=== PATIENT | female | born 1995 | race Caucasian/White ===

== ENCOUNTER → 2020-08-24 16:53 | Outpatient (CLI) | payer OTHER, SELFPAY ==
[2020-08-24 18:04] LABS: Add Manual Diff / Slide Review NO; Basophils Absolute Auto 0 /uL (0-100); Basophils Percent Auto 0.5 % (0-2); Eosinophils Absolute Auto 100 /uL (0-450); Eosinophils Percent Auto 1.9 % (2-4); Hematocrit 39.6 % (36-46); Hemoglobin 13.6 g/dL (12.0-16.0); Lymphocytes Absolute Auto 2300 /uL (1100-4500); Lymphocytes Percent Auto 32.2 % (25-40); Mean Corpuscular HGB Conc 34.4 % (30-36); Mean Corpuscular Hemoglobin 31.9 PG (26-34); Mean Corpuscular Volume 92.9 fL (80-100); Monocytes Absolute Auto 500 /uL (0-900); Monocytes Percent Auto 7.6 % (3-14); Neutrophils Absolute Auto 4100 /uL (1500-7000); Neutrophils Percent Auto 57.8 % (50-75); Platelet Count 169 X10^3/uL (150-400); Red Blood Cell Count 4.26 X10^6/uL (4.0-5.2); Red Cell Distribution Width 11.7 % (11.6-14.8); White Blood Cell Count 7.1 X10^3/uL (4.5-11.0)
[2020-08-24 18:49] LABS: Appearance Urine UA CLEAR; Bilirubin Urine UA NEGATIVE (NEGATIVE); Color Urine UA YELLOW; Glucose Urine UA NEGATIVE (Negative); Ketones Urine UA NEGATIVE (NEGATIVE); Leukocyte Esterase Urine UA NEGATIVE (NEGATIVE); Nitrite Urine UA NEGATIVE (Negative); Occult Blood Urine UA NEGATIVE (Negative); Protein Urine UA NEGATIVE (Negative); Urobilinogen Urine UA 0.2 E.U./dL (0.2)
[2020-08-24 19:28] LABS: Hepatitis B Surface Antigen NEGATIVE s/c (NEGATIVE); Rubella Antibody IgG 21.3 IU/mL (>15)
[2020-08-24 20:02] LABS: HIV 1 & 2 Ab/Ag 4th Gen Combo NEGATIVE (NEGATIVE); Hep C Virus Ab w/Reflex Quant NEGATIVE s/c (NEGATIVE)
[2020-08-25 06:01] LABS: RPR Screen Non Reactive (Non Reactive)
[2020-08-25 12:56] LABS: Varicella IgG Antibody 317 index (Immune >165)
== END ==
PROVIDERS: PCP Registered Nurse; Referring Provider Obstetrics & Gynecology; Visit Provider Obstetrics & Gynecology
DX: Z34.01 Encounter for supervision of normal first pregnancy, first trimester (principal)
CPT/HCPCS: 36415; 80055; 81003; 86787; 86803; 86850; 86900; 86901; 87086; 87389

== ENCOUNTER → 2020-09-17 | Outpatient (CLI) | payer OTHER, SELFPAY | PROVIDERS: Referring Provider Obstetrics & Gynecology; Visit Provider Obstetrics & Gynecology | DX: Z36.0 Encounter for antenatal screening for chromosomal anomalies (principal) | CPT/HCPCS: 84163 ==

== ENCOUNTER → 2020-10-19 16:49 | Outpatient (CLI) | payer OTHER, SELFPAY ==
[2020-11-20 15:20] LABS: Sequential Screen 2nd Trimeste SEE SCANNED REPORTS
== END ==
PROVIDERS: PCP Family Medicine; Referring Provider Obstetrics & Gynecology; Visit Provider Obstetrics & Gynecology
DX: Z34.02 Encounter for supervision of normal first pregnancy, second trimester (principal); Z3A.18 18 weeks gestation of pregnancy
CPT/HCPCS: 82105; 82677; 84163; 84702; 86336

== ENCOUNTER → 2020-10-30 11:59 | Outpatient (CLI) | payer OTHER, SELFPAY ==
--- NOTE | 2020-10-30 12:00 | DI.US.S_ITS ---
PROCEDURE: US OB >= 14 WEEKS FETUS INDICATIONS: 20 week anatomy scan OUTSIDE/PRIOR DATING DATA: First dating scan (date and location): 08/20/2020 . Estimated date of delivery (LINO) from first dating scan: 03/16/2021 . TECHNIQUE: Real-time scanning was performed of the fetus, with image documentation and biometric measurements. Endovaginal scanning: No COMPARISON: [facility], , OB >= 14 WEEKS FETUS, 10/15/2020, 16:21. FINDINGS: General: A single living intrauterine gestation is present. Presentation: Variable. Placenta: Placental position is posterior , without previa Amniotic fluid index: 11.7 cm, normal range is 5-24 cm. heart rate: 145 beats per minute. Maternal cervical canal: 3.6 cm long. Normal lower limit is 2.5 cm. biometrics: Biparietal diameter: 21 weeks Head circumference: 20 weeks Abdominal circumference: 21 weeks 3 days Femur length: 20 weeks 2 days Estimated gestational age from initial scan: 20 weeks 3 days Composite gestational age from present scan: 20 weeks 5 days Estimated weight and percentile: 380 g; 68th percentile Measurement variability for biometric dating: +/- 7 days from 14 weeks to 15 weeks 6 days gestation, +/- 10 days from 16 weeks to 21 weeks 6 days gestation, +/- 2 weeks from 22 weeks to 27 weeks 6 days gestation, +/- 3 weeks for 28 weeks gestation or later. weight reference: 4500 g or EFW >90/95% is considered macrosomia or large for gestational age. EFW <10% is small for gestational age. EFW 5% or less is considered intra-uterine growth restriction. Anatomic survey: Neuro: Ventricles are non-dilated at less than 10 mm. Cisterna magna is normal at 3-11 mm. Cerebellum is normal in size and morphology. Choroid plexus cyst. Nuchal skin fold: Normal at less than 6 mm between 14-21 weeks gestational age. Face: Nose and lips, facial profile are normal. Spine: No evidence for spina bifida. Heart: 4-chambered heart is present, with normal ventricular outflow tracts. Diaphragm: Diaphragm is intact. Stomach: Left-sided stomach is present. Kidneys: No hydronephrosis. Normal is less than 5 mm in 2nd trimester, less than 7 mm in 3rd trimester. Cord: 3-vessel cord has orthotopic insertion. Bladder: Normal in size. Extremities: All 4 extremities identified. IMPRESSION: 1. Single living IUP redemonstrated and interval growth is normal. 2. Small choroid plexus cyst present: in isolation, no association with aneuploidy. Anatomic survey otherwise is normal. Dictated by: Blayne Reich [facility] Interpreted: Johanny Woody MD on 10/30/2020 at 15:01 Approved by: Johanny Woody M.D. on 10/30/2020 at 15:30
== END ==
PROVIDERS: PCP Family Medicine; Referring Provider Obstetrics & Gynecology; Visit Provider Obstetrics & Gynecology
DX: Z34.82 Encounter for supervision of other normal pregnancy, second trimester (principal); Z3A.20 20 weeks gestation of pregnancy
CPT/HCPCS: 76811

== ENCOUNTER → 2020-12-12 14:39 | Outpatient (CLI) | payer OTHER, SELFPAY ==
--- NOTE | 2020-12-12 14:40 | DI.US.S_ITS ---
PROCEDURE: US OB FOLLOW UP INDICATIONS: FOLLOW UP RIGHT CHOROID PLEXUS CYST OUTSIDE/PRIOR DATING DATA: Last menstrual period (LMP): Unknown . LMP-based estimated date of delivery (LINO): Unknown . First dating scan (date and location): 08/20/20 . Estimated date of delivery (LINO) from first dating scan: 03/16/21 . TECHNIQUE: Real-time scanning was performed of the fetus, with image documentation. Endovaginal scanning: Not performed COMPARISON: [facility], OB >= 14 WEEKS FETUS, 10/30/2020, 12:09. [facility], OB >= 14 WEEKS FETUS, 10/15/2020, 16:21. [facility], OB <= 14 WEEKS FETUS, 08/20/2020, 16:53. FINDINGS: A single living intrauterine gestation is present. Presentation: Breech. Placenta: Placental position is posterior , without previa. Amniotic fluid index: 16.0 cm, normal range is 5-24 cm. Largest pocket 6.4 cm. heart rate: 140 beats per minute. Maternal cervical canal: 3.6 cm long. Normal lower limit is 2.5 cm. Estimated gestational age from initial scan: 26 weeks 4 days . Previously identified choroid plexus cysts are no longer visualized. The ventricles, chest, stomach, kidneys and bladder unremarkable IMPRESSION: Single living intrauterine fetus in breech presentation. Interval resolution of choroid plexus cysts since 10/30/20 Dictated by: Alli Lowery M.D. on 12/12/2020 at 16:35 Approved by: Alli Lowery M.D. on 12/12/2020 at 16:38
== END ==
PROVIDERS: PCP Family Medicine; Referring Provider Obstetrics & Gynecology; Visit Provider Obstetrics & Gynecology
DX: Z36.2 Encounter for other antenatal screening follow-up; O28.3 Abnormal ultrasonic finding on antenatal screening of mother; O35.0XX0 Maternal care for (suspected) central nervous system malformation in fetus, not applicable or unspecified; Z3A.26 26 weeks gestation of pregnancy
CPT/HCPCS: 76816

== ENCOUNTER → 2020-12-20 11:05 | Outpatient (CLI) | payer OTHER, SELFPAY ==
[2020-12-20 13:20] LABS: Hematocrit 39.6 % (36-46); Hemoglobin 13.7 g/dL (12.0-16.0)
[2020-12-20 13:30] LABS: GTT (PREG) 1 Hour PP 50gm Dose 90 mg/dL (76-139)
== END ==
PROVIDERS: PCP Family Medicine; Referring Provider Obstetrics & Gynecology; Visit Provider Obstetrics & Gynecology
DX: Z34.02 Encounter for supervision of normal first pregnancy, second trimester (principal); Z3A.26 26 weeks gestation of pregnancy
CPT/HCPCS: 36415; 82950; 85014; 85018

== ENCOUNTER → 2021-02-25 11:30 | Outpatient (CLI) | payer OTHER, SELFPAY ==
[2021-02-26 09:52] LABS: Strep Grp B PCR POS for Grp B Strep
== END ==
PROVIDERS: PCP Family Medicine; Visit Provider Obstetrics & Gynecology
DX: Z34.03 Encounter for supervision of normal first pregnancy, third trimester (principal); Z3A.36 36 weeks gestation of pregnancy
CPT/HCPCS: 87653

== ENCOUNTER 2021-03-01 15:34 | Outpatient (CLI) | payer OTHER, SELFPAY ==
--- NOTE | 2021-03-01 16:22 | P.TNLD_ITS ---
Visit Information Visit Information Date of evaluation: 03/01/21 Primary OB Provider: Archana Ragland Reason for Evaluation: Yes rule out labor Comments/Additional reasons for admission: Patient is a 25-year-old at 37 weeks 2 days presenting with contractions symptomatic Q 10-15 minutes, no loss of fluid, no vaginal bleeding, good movement. Patient has had an otherwise uncomplicated . Patient is GBS positive and is aware, no concern for rupture. Vital Signs Vital Signs: 125/65, heart rate 71 PFSH Medical History Acne (~2009) Surgical History Anesthesia History of tonsillectomy (~2009) [place] teeth extracted (~2001) Family History Mother No problems noted. Father Viral cardiomyopathy Grandmother No problems noted. Grandfather Cancer Grandmother Old age Grandfather Diabetes mellitus Brother Asthma Social History marital status: unmarried,living together number of children: 0 household members: significant other lives independently: Yes caregiver/support person: No housing: apartment pets and animals: Yes (2 dogs, seem safe.) education level: college (Pre-nursing.) occupational status: employed ([employer], works in [employer].) current occupational exposures/hazards: No victorino/protestant: Muslim Saint / Confucianism special victorino needs: No leisure activities: exercise (walking every day.) Smoking Status: Never smoker second hand exposure: No alcohol intake: former (Socially, very occasional.) during the past year weight has: remained stable Evaluation Evaluation Baseline heart rate: 125 Variability: Moderate (11-25) monitor accelerations: Present Monitor Decelerations: Absent Uterine Contraction Intensity: Mild Category of Tracing: Reactive Status: Category l Cervical dilation (cm): 0 Cervical effacement (%): 50 station: -2 Comments: Sleep cycle with accelerations at beginning of monitoring, moderate variability after monitoring. Contractions irregular, few symptomatic. Diagnosis, Plan/Disposition Plan/Disposition Plan: Home with labor precautions. OB Disposition: home
[2021-03-01 17:19] LABS: Bacteria Urine None Seen; RBC Urine None Seen (0-5/HPF); WBC Urine None Seen (0-5/HPF)
[2021-03-01 17:27] LABS: Appearance Urine UA CLEAR; Bilirubin Urine UA NEGATIVE (NEGATIVE); Color Urine UA YELLOW; Glucose Urine UA NEGATIVE (Negative); Ketones Urine UA NEGATIVE (NEGATIVE); Leukocyte Esterase Urine UA NEGATIVE (NEGATIVE); Nitrite Urine UA NEGATIVE (Negative); Occult Blood Urine UA NEGATIVE (Negative); Protein Urine UA NEGATIVE (Negative); Urobilinogen Urine UA 0.2 E.U./dL (0.2)
[2021-03-01 17:34] LABS: Culture Indicated Urine Cult Not Indicated; Squamous Epithelial Cell Urine 5-10 /HPF (0-5/HPF)
== END 2021-03-01 16:30 | disposition home or self-care (01) ==
LOC: LABOR 16:31 → OB 03-05 08:57
PROVIDERS: PCP Family Medicine; Referring Provider Obstetrics & Gynecology; Visit Provider Obstetrics & Gynecology
DX: O47.1 False labor at or after 37 completed weeks of gestation (principal); Z3A.37 37 weeks gestation of pregnancy
CPT/HCPCS: 59025; 81001; G0378; G0379

== ENCOUNTER 2021-03-18 09:19 | Outpatient (CLI) | payer OTHER, SELFPAY ==
[2021-03-18 10:01] LABS: Add Manual Diff / Slide Review NO; Basophils Absolute Auto 0 /uL (0-100); Basophils Percent Auto 0.4 % (0-2); Eosinophils Absolute Auto 100 /uL (0-450); Eosinophils Percent Auto 1.4 % (2-4); Hematocrit 40.9 % (36-46); Hemoglobin 14.4 g/dL (12.0-16.0); Lymphocytes Absolute Auto 1600 /uL (1100-4500); Lymphocytes Percent Auto 16.6 % (25-40); Mean Corpuscular HGB Conc 35.2 % (30-36); Mean Corpuscular Hemoglobin 32.1 PG (26-34); Mean Corpuscular Volume 91.2 fL (80-100); Monocytes Absolute Auto 700 /uL (0-900); Monocytes Percent Auto 7.1 % (3-14); Neutrophils Absolute Auto 7300 /uL (1500-7000); Neutrophils Percent Auto 74.5 % (50-75); Platelet Count 131 X10^3/uL (150-400); Red Blood Cell Count 4.48 X10^6/uL (4.0-5.2); Red Cell Distribution Width 12.3 % (11.6-14.8); White Blood Cell Count 9.7 X10^3/uL (4.5-11.0)
[2021-03-18 10:15] LABS: Aspartate Aminotransferase 23 IU/L (14-36); BUN Creatinine Ratio 16.4 (6-22); Blood Urea Nitrogen 9 mg/dL (7-17); Estimated Glomerular Filt Rate > 60.0 mL/min (>60)
[2021-03-18 12:14] LABS: Creatinine Urine Random 11.2 mg/dL; Protein (Total) Urine Random 14 mg/dL (0-12); Protein Creatinine Ratio Urine 1.25 GRAM/24H
== END 2021-03-18 10:15 | disposition home or self-care (01) ==
LOC: LABOR 10:09 → OB 03-19 06:58
PROVIDERS: PCP Family Medicine; Referring Provider Obstetrics & Gynecology; Visit Provider Obstetrics & Gynecology
DX: O13.3 Gestational [pregnancy-induced] hypertension without significant proteinuria, third trimester (principal); Z3A.39 39 weeks gestation of pregnancy
CPT/HCPCS: 36415; 59025; 82570; 84156; 84450; 84550; 85025; G0378; G0379

== ENCOUNTER 2021-03-20 19:22 | Outpatient (CLI) | payer OTHER, SELFPAY | END 2021-03-20 21:35 | disposition home or self-care (01) | LOC: LABOR 19:25 → OB 03-21 06:40 | PROVIDERS: PCP Family Medicine; Referring Provider Obstetrics & Gynecology; Visit Provider Obstetrics & Gynecology | DX: O48.0 Post-term pregnancy (principal); Z3A.40 40 weeks gestation of pregnancy | CPT/HCPCS: 59025; G0378; G0379 ==

== ENCOUNTER 2021-03-21 18:31 | Inpatient (IN) | payer OTHER, SELFPAY ==
[2021-03-21] MEDS: DINOPROSTONE VAG (CERVIDIL) 10 MG VAG (19:20)
[2021-03-21 19:40] LABS: COVID19 -Nasal RAPID Negative (Negative)
[2021-03-21 20:24] LABS: Add Manual Diff / Slide Review NO; Basophils Absolute Auto 0 /uL (0-100); Basophils Percent Auto 0.4 % (0-2); Eosinophils Absolute Auto 100 /uL (0-450); Eosinophils Percent Auto 1.3 % (2-4); Hematocrit 42.1 % (36-46); Hemoglobin 14.2 g/dL (12.0-16.0); Lymphocytes Absolute Auto 2100 /uL (1100-4500); Lymphocytes Percent Auto 19.8 % (25-40); Mean Corpuscular HGB Conc 33.8 % (30-36); Mean Corpuscular Hemoglobin 31.4 PG (26-34); Mean Corpuscular Volume 92.9 fL (80-100); Monocytes Absolute Auto 1000 /uL (0-900); Monocytes Percent Auto 9.4 % (3-14); Neutrophils Absolute Auto 7200 /uL (1500-7000); Neutrophils Percent Auto 69.1 % (50-75); Platelet Count 156 X10^3/uL (150-400); Red Blood Cell Count 4.53 X10^6/uL (4.0-5.2); Red Cell Distribution Width 12.5 % (11.6-14.8); White Blood Cell Count 10.4 X10^3/uL (4.5-11.0)
[2021-03-21 21:00] VITALS: BP 121/72
[2021-03-22] VITALS (9 sets, daily range): BP systolic 123–132; BP diastolic 66–76; PULSE 96–102; RESP 10–16; TEMP 37.2–37.3; O2SAT 96–99
[2021-03-22] MEDS: LACTATED RINGERS 1,000 ML 100 ML IV ×3 (08:48→17:32)
[2021-03-22] MEDS: OXYTOCIN PREMIX 30 UNIT/500 ML PLAST..BAG IV (08:49)
--- NOTE | 2021-03-22 09:08 | PM.OBHP.1 ---
OB HPI Date/Time Date of admission: 03/21/21 Date Patient Seen: 03/21/21 Time Patient Seen: 18:00 History of Present Condition Chief complaint: eval of labor : 1 Para: 0 Estimated Date of Delivery: 03/19/21 Estimated Gestational Age (weeks): 40 Narrative: Christel Morris is a 25 year old at 40 weeks 3 days presenting for postdates induction in the setting of increasing low normal range blood pressures and new onset proteinuria. The patient reports feeling well, with good movement, increasing contractions after Cervidil overnight, no loss of fluid, no vaginal bleeding, no PIH symptoms. Her has been otherwise uncomplicated, and she has no contributory board certified family physician, medical, surgical, family, or social history. Indications Indication for induction OB: post dates History of Present care: good care, initiated at week # (9), number of visits (13) and pounds weight gain (63) Dating criteria: LMP confirmed by 1st trimester US Ultrasounds: normal 1st trimester US and normal mid trimester US Obstetrical complications: none Medical complications: none Preadmission Labs Blood type: O (+) positive -: Antibody screen: negative, GBS status: positive, HBsAG: negative, HIV: negative and RPR/VDLR: negative -: Chlamydia screen: not detected and Gonorrhea screen: not detected -: Rubella: immune and Varicella: immune PAP: Normal Integrated screen: negative Urine: no growth 1 hr GTT: 90 Evaluation Evaluation Baseline heart rate: 130 Variability: Moderate (11-25) monitor accelerations: Present Monitor Decelerations: Absent Contraction Frequency (minutes): 3 Category of Tracing: Reactive Status: Category l Cervical dilation (cm): 1 Cervical effacement (%): 75 station: -2 Laboratory results: Laboratory Tests 03/21/21 03/21/21 03/21/21 18:55 19:55 19:55 WBC 10.4 RBC 4.53 Hgb 14.2 Hct 42.1 MCV 92.9 MCH 31.4 MCHC 33.8 RDW 12.5 Plt Count 156 Neut % (Auto) 69.1 Lymph % (Auto) 19.8 L Treasure % (Auto) 9.4 Eos % (Auto) 1.3 L Baso % (Auto) 0.4 Neut # (Auto) 7200 H Lymph # (Auto) 2100 Treasure # (Auto) 1000 H Eos # (Auto) 100 Baso # (Auto) 0 SARS-CoV-2 (PCR) Negative Blood Type O Positive Antibody Screen Negative Comments: EFW 8# Transcervical bojorquez placed at 9:00 AM, 50ccs sterile saline in bulb. [facility] Medical History Acne (~2009) Surgical History Anesthesia History of tonsillectomy (~2009) [place] teeth extracted (~2001) Family History Mother No problems noted. Father Viral cardiomyopathy Grandmother No problems noted. Grandfather Cancer Grandmother Old age Grandfather Diabetes mellitus Brother Asthma Social History marital status: unmarried,living together number of children: 0 household members: significant other lives independently: Yes caregiver/support person: No housing: apartment pets and animals: Yes (2 dogs, seem safe.) education level: college (Pre-nursing.) occupational status: employed ([employer], works in [employer].) current occupational exposures/hazards: No victorino/anglican: Gnosticism Saint / Mormonism special victorino needs: No leisure activities: exercise (walking every day.) Smoking Status: Never smoker second hand exposure: No alcohol intake: former (Socially, very occasional.) during the past year weight has: remained stable Meds Home Medications and Allergies Home Medications Medication Instructions Recorded Confirmed Type prenat.vits,alba,hql-kwqm-hzjmk 1 tab PO DAILY 08/17/20 03/21/21 History Allergies Allergy/AdvReac Type Severity Reaction Status Date / Time No Known Drug Allergies Allergy Verified 03/21/21 20:50 Review of Systems Constitutional Constitutional: Reports system reviewed and no additional complaints, except as documented Cardiovascular Cardiovascular: Reports system reviewed and no additional complaints, except as documented Respiratory Respiratory: Reports system reviewed and no additional complaints, except as documented Gastrointestinal Gastrointestinal: Reports system reviewed and no additional complaints, except as documented Genitourinary Genitourinary: Reports system reviewed and no additional complaints, except as documented Musculoskeletal Musculoskeletal: Reports system reviewed and no additional complaints, except as documented Neurologic Neurologic: Reports system reviewed and no additional complaints, except as documented Exam Vital Signs (past 8 hours): 126/63, HR 83 Const General: cooperative, healthy appearing and comfortable GI Palpation: soft and No tender External Female Exam: normal external appearance Estimated Weight (lbs): 8 Extrem General: normal to inspection Objective Labs Result Diagrams: 03/21/21 19:55 Labs: Laboratory Results - last 24 hr 03/21/21 03/21/21 03/21/21 18:55 19:55 19:55 WBC 10.4 RBC 4.53 Hgb 14.2 Hct 42.1 MCV 92.9 MCH 31.4 MCHC 33.8 RDW 12.5 Plt Count 156 Neut % (Auto) 69.1 Lymph % (Auto) 19.8 L Treasure % (Auto) 9.4 Eos % (Auto) 1.3 L Baso % (Auto) 0.4 Neut # (Auto) 7200 H Lymph # (Auto) 2100 Treasure # (Auto) 1000 H Eos # (Auto) 100 Baso # (Auto) 0 SARS-CoV-2 (PCR) Negative Blood Type O Positive Antibody Screen Negative Assessment and Plan Assessment and Plan Assessment and Plan narrative: This patient is admitted for induction of labor for postdates. She responded well to cervidil overnight, and will be for low dose pitocin and a bojorquez bulb this AM. Penicillin starting per protocol for GBS ppx, discussed AROM when bojorquez bulb spontaneously falls out and with initiation of second dose pitocin. - cEFM, toco
--- NOTE | 2021-03-22 09:28 | PM.AN.REGBLK ---
Regional Block Pre-procedure Procedure: Continuous Lumbar Epidural for L&D Attending OB provider: Archana Ragland PMH/ROS narrative: post-dates induction, BMI 37, no obstetric complications, no significant PMH. ASA Class: II Labs: Hct 42.1 % (36-46) 03/21/21 19:55 Plt Count 156 X10^3/uL (150-400) 03/21/21 19:55 Medications: Current Medications Generic Name Dose Route Start Last Admin Trade Name Freq PRN Reason Stop Dose Admin Calcium Carbonate 1,000 mg 03/21/21 18:55 Calcium Carbonate 500 Mg Tab PO Q2H PRN Dyspepsia Carboprost Tromethamine 250 mcg 03/22/21 08:11 Carboprost 250 Mcg/Ml Ampul IM Q90M PRN Bleeding Diphenhydramine HCl 25 mg 03/22/21 08:10 Diphenhydramine 50 Mg/Ml Vial IV Q10M PRN Pruritis Fentanyl 50 mcg 03/22/21 08:11 Fentanyl 100 Mcg/2 Ml Inj IV Q1H PRN Pain, Moderate (4-6) Lactated Ringer's 1,000 mls @ 100 mls/hr 03/21/21 19:00 03/22/21 08:48 Lactated Ringers IV 100 mls/hr CONT MANDA Administration FENT 2MCG/ML BUPIV 0.125% EPI 200 mcg in 100 mls @ 6 mls/hr 03/22/21 08:15 Fentanyl/Bupiv/Ns 2mcg/Ml - 0.125% EPIDURAL CONT MANDA Lactated Ringer's 1,000 mls @ 100 mls/hr 03/22/21 08:15 Lactated Ringers IV CONT MANDA Oxytocin/Lactated Ringer's 30 unit in 500 mls @ 200 mls/hr 03/22/21 08:11 Oxytocin Premix IV CONT PRN Bleeding Protocol Penicillin G Potassium 3,000,000 unit in 50 mls @ 100 mls/hr 03/22/21 13:00 Penicillin G Potassium IV Q4H MANDA Oxytocin/Lactated Ringer's 30 unit in 500 mls @ 3 mls/hr 03/22/21 08:15 03/22/21 08:49 Oxytocin Premix IV 3 milliunit/min TITRATE MANDA 3 mls/hr Administration Protocol 3 MILLIUNIT/MIN Tranexamic Acid 1,000 mg/ 100 mls @ 200 mls/hr 03/22/21 08:24 Sodium Chloride IV NOW PRN Post Delivery Penicillin G Potassium 5,000, 250 mls @ 250 mls/hr 03/22/21 09:15 000 unit/ Dextrose IV 03/22/21 10:14 NOW ONE Methylergonovine Maleate 0.2 mg 03/22/21 08:11 Methylergonovine 0.2 Mg Tablet PO Q6HR PRN Heavy Bleeding Methylergonovine Maleate 0.2 mg 03/22/21 08:11 Methylergonovine 0.2 Mg/Ml Vial IM NOW PRN Bleeding Metoclopramide HCl 10 mg 03/22/21 08:11 Metoclopramide 10 Mg/2 Ml Inj IV NOW PRN Nausea And Vomiting Misoprostol 800 mcg 03/22/21 08:11 Misoprostol 200 Mcg Tablet MI NOW PRN Bleeding Misoprostol 1,000 mcg 03/22/21 08:11 Misoprostol 200 Mcg Tablet MI NOW PRN Bleeding Misoprostol 400 mcg 03/22/21 08:11 Misoprostol 200 Mcg Tablet SL NOW PRN Bleeding Naloxone HCl 0.2 mg 03/22/21 08:11 Naloxone 0.4 Mg/Ml Vial IV Q2MIN PRN Opiate Reversal Ondansetron HCl 4 mg 03/22/21 08:11 Ondansetron 4 Mg/2 Ml Inj IV Q4HR PRN Nausea And Vomiting Oxytocin 10 unit 03/22/21 08:11 Oxytocin 10 Unit/Ml Vial IM NOW PRN Bleeding Zolpidem Tartrate 5 mg 03/21/21 18:55 Zolpidem 5 Mg Tablet PO BEDTIME PRN Sleep Allergies: Allergies Allergy/AdvReac Type Severity Reaction Status Date / Time No Known Drug Allergies Allergy Verified 03/21/21 20:50 Procedure Insertion date: 03/22/21 Insertion time: 10:18 Prep/Local: betadine x3 Interspace: L2-3 Patient position: sitting Needle: 18 gauge Martina (CSE: 27g Pencan through Hustead, clear CSF, 1mL 0.25% MPF bupiv) Loss of resistance with: saline SUMIT at (cm): 6 Catheter placed at SKIN (cm): 11 Catheter in SPACE (cm): 5 Insertion: No CSF, No Blood, No Paresthesia with insertion, No Paresthesia with injection and No Test dose reaction Initial Medications TEST DOSE time: 10:20 TEST DOSE: 1.5% lidocaine with epinephrine 1:200k (mL): 3 BOLUS DOSE time: 10:28 BOLUS DOSE (mL): 4 BOLUS DOSE med: other (infusate) Infusion INFUSION: 0.125% bupivacaine and with fentanyl 2 mcg/mL Initial rate (mL/hr): 6 Subsequent interventions: to OR for distress, failure to progress. 15mL 2% lidocaine, adequate block to T3-4 Post-procedure Anesthesia time START: 10:06 Anesthesia time END: 18:08 Post-procedure Anesthesia Assessment: Yes CV function: HR/BP stable, Yes Resp function: RR/sat/airway adequate, Yes Post-op hydration adequate, Yes Pain control adequate, Yes Nausea & vomiting absent, Yes Temperature > 36 C, Yes Mental status appropriate and No Anesthesia complications
[2021-03-22] MEDS: PENICILLIN G POTASSIUM 5,000,000 UNIT in DEXTROSE 5% IN WATER 250 ML IV (09:40)
[2021-03-22] MEDS: FENT 2MCG/ML BUPIV 0.125% EPI 200 MCG/100 ML PLAST..BAG 6 MCG EPIDURAL (10:30)
[2021-03-22] MEDS: PENICILLIN G POTASSIUM 3,000,000 UNIT/50 ML FROZ.PIGGY 100 UNIT IV ×2 (13:19→17:00)
--- NOTE | 2021-03-22 14:30 | PM.OBPNLAB ---
Date/Time Date Patient Seen: 03/22/21 Time Patient Seen: 14:30 Pain Control Pain control: epidural Pelvic Exam Dilation (cm): 5 Effacement (%): 90 station: -1 Amniotic membrane status: Ruptured (clear) Contractions Pitocin rate (mU/min): 12 Contraction frequency (min): 2 Contraction pattern: Regular Status status: Category l Heart Rate Baseline: 125 Monitor Accelerations: Present Monitor Decelerations: Absent Monitor Variability: Moderate Comments: bojorquez bulb fell out at noon. AROM at 2:30 for clear fluid. Assessment and Plan Assessment: induction ongoing Plan: continuous present management
--- NOTE | 2021-03-22 16:59 | PM.OBPNLAB ---
Date/Time Date Patient Seen: 03/22/21 Time Patient Seen: 16:59 Pain Control Pain control: epidural Pelvic Exam Dilation (cm): 6 Effacement (%): 90 station: 0 Amniotic membrane status: Ruptured (clear) Contractions Pitocin rate (mU/min): 0 Contraction frequency (min): 3 Contraction pattern: Regular Status status: Category ll Heart Rate Baseline: 120 Monitor Accelerations: Absent Monitor Decelerations: Early and Late Monitor Variability: Minimal Comments: 1x prolonged deceleration, improved with repositioning, pitocin turned off. bolus, O2, repositioning applied. Assessment and Plan Assessment: induction ongoing Comments: Patient's rate of cervical change has slowed, and her course is c/b cat 2 EFM with early decelerations transitioning to lates with 1x prolonged deceleration. Pitocin is currently off and all conservative measures undertaken, and fetus continues to have scalp stim. Discussed cat 2 EFM with patient and potential for section. discussed risk of infection, hemorrhage, damage to bowel and bladder, concerns with abnormal placentation with future pregnancies. Discussed status and plan to reexamine in 30 minutes after giving rescusistative measures time to take effect. All questions answered.
--- NOTE | 2021-03-22 17:48 | PM.PREOP ---
Pre-operative Note COVID-19 COVID-19 status: Negative Result date/Date tested (Pos, Neg/Pending): 03/22/21 Interval Note History & Physical reviewed/Exam performed by Physician: Yes Changes to H&P: No
[2021-03-22] MEDS: CEFAZOLIN 2 GM/100 ML FROZ.PIGGY IV (18:12)
[2021-03-22] MEDS: ACETAMINOPHEN IV 1,000 MG/100 ML VIAL 400 MG IV (18:30)
--- NOTE | 2021-03-22 18:31 | SUR.OPER ---
Supine on Padded OR bed, head on pillow, safety belt at thigh, arms secured on padded arm boards at <90 degrees abduction. Bump under right buttock. Legs uncrossed with pillow under knees, gel pad to heels, tape over blanket to lower legs.
[2021-03-22] MEDS: AZITHROMYCIN 500 MG in DEXTROSE 5% IN WATER 250 ML IV (18:51)
--- NOTE | 2021-03-22 18:53 | SUR.OPER ---
FHT 134 TOB AT 18:30 ALIVE FEMALE CORD BLOOD X 2 AND PLACENTA GIVEN TO OB NURSE
[2021-03-22] MEDS: HYDROMORPHONE 2 MG INJ IV (19:38)
[2021-03-22] MEDS: OXYCODONE IR 5 MG TABLET PO (19:38)
--- NOTE | 2021-03-22 19:41 | PM.OBCS.1 ---
Operative Date/Time/Diagnoses Date of procedure: 03/22/21 Time of procedure: 18:00 Pre-op diagnosis: intolerance of labor Post-op diagnosis: same Procedure & Clinicians Procedure: primary section Same procedure as scheduled: Yes Indications: intolerance of labor Surgeon: Archana Ragland Nuclear Cardiology Technologist: Emerita Hughes Reason for Nuclear Cardiology Technologist: Assistance with retraction, delivery of baby, management of hemorrhage Anesthesia Type: General Operative Notes Findings: Female in cephalic, asynclitic presentation. weight 7#10, apgars 8+9, no nuchal cord. Normal tubes and ovaries. 1cm subserosal fibroid on posterior fundus. Closure Type: primary Intraoperative meds administered: Ketorolac and Pitocin Applied: Catheter Estimated Blood Loss (mL): 1,000 Procedure in detail: EBL: 1000ccs Fluids:800ccs LR UOP: 150ccs clear yellow urine Procedures: The patient was taken to the operating room where spinal anesthesia was placed and found to be adequate. She was prepped and draped in the normal sterile fashion in the dorsal supine position with a leftward tilt. A Pfannenstiel skin incision was made with a scalpel and carried through to the underlying layer of fascia. The fascia was incised in the midline and the incision extended laterally with Pandya scissors. The superior aspect of this incision was grasped with Alexandro clamps, elevated, and the underlying rectus muscles dissected off bluntly and with the curved Pandya scissors. Attention was then turned to the inferior aspect of this incision which, in a similar fashion, was grasped, tented up with the Alexandro clamps, and the rectus muscles dissected off bluntly and with the curved Pandya scissors. The rectus muscles were then in the midline, and the peritoneum identified, tented up, and entered sharply with Metzenbaum scissors. The peritoneal incision was extended superiorly and inferiorly with good visualization of the bladder. The bladder blade was inserted and the vesicouterine peritoneum identified, grasped with pickups, and entered sharply with the Metzenbaum scissors. This incision was extended laterally, and the bladder flap created digitally. The bladder blade was then reinserted and the lower uterine segment incised in transverse fashion with the scalpel. The uterine incision was bluntly extended laterally. The bladder blade was removed, and the infant's head delivered atraumatically with assistance of a vacuum. After 30 seconds of delayed cord clamping, the cord was clamped and cut. The nose and mouth were suctioned as needed with a bulb syringe, and the infant was handed off to awaiting pediatricians. The placenta was then removed manually, and the uterus was exteriorized and cleared of all clots and debris. The uterine incision was repaired with 1-0 chromic in a running, locked fashion and a 2nd layer of the same suture was used to obtain excellent hemostasis. The uterus was returned to the abdomen, and the gutters were cleared of all clots and debris. The bladder flap was closed with 2-0 Vicryl in a running fashion, the peritoneum was closed with 3-0 Vicryl, and the fascia reapproximated with 0 Vicryl in a running fashion. The subcutaneous layer was placed with 3 0 Vicryl in an interrupted fashion and the skin was closed with 4-0 biosyn in a running fashion. The patient tolerated the procedure well sponge lap and needle counts were correct x2. 2 g of Ancef and 500mg Azithromycin were given at commencement of the case, and a vaginal betadine prep was performed. The patient was taken to the recovery room in stable condition. Complications: none [place] Baby 1: Gender: Female (Sumi) Presentation: vertex Position: Left Occiput Anterior Placental Delivery Description: Spontaneous Cord Vessel Description: 3 Vessels score (1 min): 8 score (5 min): 9 weight: 7 lb 10 oz Post-operative Condition: stable Disposition: PACU Aftercare: routine postop
[2021-03-23] MEDS: KETOROLAC 30 MG/ML VIAL IV ×3 (01:25→13:30)
[2021-03-23] MEDS: ACETAMINOPHEN 325 MG TABLET 650 MG PO ×3 (09:04→23:25)
[2021-03-23] MEDS: OXYCODONE IR 10 MG TABLET PO ×4 (09:04→23:24)
[2021-03-23] MEDS: DOCUSATE 250 MG CAPSULE PO (09:04)
[2021-03-23] MEDS: IBUPROFEN 600 MG TABLET PO (19:36)
[2021-03-24] MEDS: IBUPROFEN 600 MG TABLET PO ×2 (01:23→08:18)
[2021-03-24] MEDS: OXYCODONE IR 10 MG TABLET PO ×3 (03:53→11:26)
[2021-03-24] MEDS: ACETAMINOPHEN 325 MG TABLET 650 MG PO ×2 (05:30→11:25)
[2021-03-24 06:46] LABS: Add Manual Diff / Slide Review NO; Basophils Absolute Auto 0 /uL (0-100); Basophils Percent Auto 0.3 % (0-2); Eosinophils Absolute Auto 200 /uL (0-450); Eosinophils Percent Auto 1.9 % (2-4); Hemoglobin 11.2 g/dL (12.0-16.0); Lymphocytes Absolute Auto 2000 /uL (1100-4500); Lymphocytes Percent Auto 18.3 % (25-40); Mean Corpuscular HGB Conc 33.9 % (30-36); Mean Corpuscular Hemoglobin 31.9 PG (26-34); Mean Corpuscular Volume 94.2 fL (80-100); Monocytes Absolute Auto 700 /uL (0-900); Monocytes Percent Auto 6.8 % (3-14); Neutrophils Absolute Auto 7900 /uL (1500-7000); Neutrophils Percent Auto 72.7 % (50-75); Platelet Count 122 X10^3/uL (150-400); Red Blood Cell Count 3.51 X10^6/uL (4.0-5.2); Red Cell Distribution Width 12.6 % (11.6-14.8); White Blood Cell Count 10.9 X10^3/uL (4.5-11.0)
[2021-03-24] MEDS: DOCUSATE 250 MG CAPSULE PO (08:18)
--- NOTE | 2021-03-24 09:35 | P.PN_ITS ---
Subjective Subjective Date Patient Seen: 03/23/21 Time Patient Seen: 11:10 Interval history: Patient is a 25-year-old 1 para 1 postop day # 1 status post primary low-transverse section. She is passing a little flatus. Tolerating a diet. No nausea vomiting. going well. Ambulating independently. Her catheter was recently removed and she has not voided as of yet. Exam Vital Signs (past 8 hours): Oxygen Delivery Method Room Air Narrative Exam Narrative: Generally: Patient is sitting up in bed, holding , no ac [place] distress Lungs: Clear to auscultation bilaterally Cardiovascular: Regular rate and rhythm Fundus: Firm at U Incision: Clean dry and intact with Aquacel dressing. Old blood on the dressing. Extremities: 1+ edema, negative Homans Objective Labs Result Diagrams: 03/24/21 06:38 Labs: Laboratory Results - last 24 hr 03/24/21 06:38 WBC 10.9 RBC 3.51 L Hgb 11.2 L Hct 33.0 L MCV 94.2 MCH 31.9 MCHC 33.9 RDW 12.6 Plt Count 122 L Neut % (Auto) 72.7 Lymph % (Auto) 18.3 L Harper % (Auto) 6.8 Eos % (Auto) 1.9 L Baso % (Auto) 0.3 Neut # (Auto) 7900 H Lymph # (Auto) 2000 Harper # (Auto) 700 Eos # (Auto) 200 Baso # (Auto) 0 PFSH Medical History Acne (~2009) Surgical History Anesthesia History of tonsillectomy (~2009) [place] teeth extracted (~2001) Family History Mother No problems noted. Father Viral cardiomyopathy Grandmother No problems noted. Grandfather Cancer Grandmother Old age Grandfather Diabetes mellitus Brother Asthma Social History marital status: unmarried,living together number of children: 0 household members: significant other lives independently: Yes caregiver/support person: No housing: apartment pets and animals: Yes (2 dogs, seem safe.) education level: college (Pre-nursing.) occupational status: employed ([employer], works in [employer].) current occupational exposures/hazards: No victorino/church: [employer] / [employer] special victorino needs: No leisure activities: exercise (walking every day.) Smoking Status: Never smoker second hand exposure: No alcohol intake: former (Socially, very occasional.) during the past year weight has: remained stable Assessment & Plan Post-op Postoperative Procedures: Procedures Operation Date: 03/22/21 18:00 Actual Procedures Side Surgeon p Section Archana Ragland MD Postoperative day: 1 Postoperative status: doing well Postoperative plan: routine post-op care Time Spent With Patient Time with patient: less than 15 minutes
[2021-03-24 10:31] VITALS: BP 123/66; PULSE 98; RESP 12; TEMP 37.3
--- NOTE | 2021-03-24 14:25 | PM.OBDS.1 ---
Discharge Providers Provider Date of admission: 03/21/21 18:31 Discharge Date: 03/24/21 Primary care physician: Jessica Castro Consults: 03/22/21 20:01 Consult to Assistant Housekeeping Manager Routine Comment: Discharge provider: Emerita Hughes MD Summary Hospital Course Date Patient Seen: 03/24/21 Time Patient Seen: 10:30 Diagnoses: Postdates induction Stage I arrest of labor Primary low-transverse section Epidural analgesia Cervidil cervical ripening Pitocin induction of labor Group B strep positive Hospital Course: Patient is a 25-year-old 1 para 1 who presented for postdate induction. She got into active labor and then had a category 2 tracing. She had no progression in labor and underwent a primary low-transverse section on March 22, 2021 without complication. Her postoperative course was unremarkable. She was able to void without the catheter. No nausea or vomiting. Pain well controlled. She ambulated independently. going well. She is discharged home on postop day # 1. Peripartum Data Delivery Method: Section Laceration Description: None Episiotomy description: None Procedures: Epidural analgesia Artificial rupture of membranes Primary low-transverse section Pitocin induction of labor Cervidil cervical ripening Rhodes bulb insertion for cervical dilation complications: none [place] 1: Gender: Female (Sumi) Disposition of : home Status at Discharge Cognitive/behavioral status at discharge: oriented Functional status at discharge: independent ambulation Overall status at discharge: patient is not back to baseline Time Spent with Patient Time attestation: Total time spent providing and/or coordinating discharge services: Time spent: Less than 30 minutes Objective Labs Result Diagrams: 03/24/21 06:38 Labs: Laboratory Results - last 24 hr 03/24/21 06:38 WBC 10.9 RBC 3.51 L Hgb 11.2 L Hct 33.0 L MCV 94.2 MCH 31.9 MCHC 33.9 RDW 12.6 Plt Count 122 L Neut % (Auto) 72.7 Lymph % (Auto) 18.3 L [place] % (Auto) 6.8 Eos % (Auto) 1.9 L Baso % (Auto) 0.3 Neut # (Auto) 7900 H Lymph # (Auto) 2000 [place] # (Auto) 700 Eos # (Auto) 200 Baso # (Auto) 0 Exam Vital Signs (past 8 hours): - 03/24/21 10:31 Temperature 99.2 F Pulse Rate 98 H Respiratory Rate 12 Blood Pressure 123/66 Oxygen Delivery Method Room Air Narrative Exam Narrative: Generally: Patient is sitting up in chair, holding , no acute distress Lungs: Clear to auscultation bilaterally Cardiovascular: Regular rate and rhythm Fundus: Firm at U -1 Incision: Clean dry and intact with Aquacel dressing. Small areas of old blood visible. Extremities: Negative Homans, 1+ edema Discharge Plan Discharge Plan Patient Disposition: Home Provider Discharge Comment: Call with fever, chills, redness or drainage around the incision, or bleeding vaginally more than a pad in an hour Tylenol 650 mg every 6 hours Ibuprofen 600 mg every 6 hours Keep legs elevated Push fluids Discharge orders & Medications Prescriptions: New oxycodone 5 mg tablet 5 mg PO Q6H PRN (Reason: pain) Qty: 14 RF: 0 ibuprofen 600 mg tablet 600 mg PO QID PRN (Reason: pain or crampint) Qty: 30 RF: 2 docusate sodium 250 mg capsule 250 mg PO DAILY Qty: 20 RF: 3 Continued prenat.vits,alba,eif-[id number] Tablet 1 tab PO DAILY RF: 0 Follow up/Referrals: Archana Ragland MD [Physician] - 1 Week (Postop check Dr Kirby nurse will call on Thursday to make an appointment for dressing removal in a weel ) Diet/Activity/Treatments Diet: Regular Activity: Nothing in the vagina for 6 weeks. Avoid lifting more than 10 pounds for 6 weeks. If you have increasing bleeding, pain, fevers, chills, nausea, vomiting, headaches, visual changes, or any other symptoms, call or come to the emergency room. Skin/Wound/Dressing Care Report to your healthcare provider any signs of infection, such as:: chills, fever, night sweats, increased pain, unusual drainage and unusual redness Visit Report/Discharge Packet Instructions: DI for , DI for Prescription Opioid Use Stand Alone Forms: Discharge: Care Discharge Data Primary Care Provider: Jessica Castro
== END 2021-03-24 12:35 | disposition home or self-care (01) | DRG 788 ==
PROVIDERS: Admitting Provider Obstetrics & Gynecology; PCP Family Medicine; Referring Provider Obstetrics & Gynecology; Visit Provider Obstetrics & Gynecology
PROC: 10D00Z1 Extraction of Products of Conception, Low, Open Approach (ICD-10-PCS; CPT 59514; principal; 2021-03-22 18:00)
DX: O48.0 Post-term pregnancy (principal); Z3A.40 40 weeks gestation of pregnancy; Z37.0 Single live birth; O99.824 Streptococcus B carrier state complicating childbirth; D25.2 Subserosal leiomyoma of uterus; O76 Abnormality in fetal heart rate and rhythm complicating labor and delivery; O12.14 Gestational proteinuria, complicating childbirth; Z20.822 Contact with and (suspected) exposure to COVID-19
CPT/HCPCS: 01967; 01968; 36415; 59050; 59200; 59510; 59514; 76815; 85025; 86850; 86900; 86901; 87635; C9803; G0379; J0131; J0690; J1170; J1885; J2274; J2540; J2590

== ENCOUNTER → 2023-01-15 14:14 | Outpatient (CLI) | payer OTHER, SELFPAY ==
--- NOTE | 2023-01-15 14:15 | DI.RAD.S_ITS ---
PROCEDURE: XR LUMBAR SPINE MIN 4V INDICATIONS: BACK PAIN TECHNIQUE: 5 views of the lumbar spine were acquired, including bilateral oblique views. COMPARISON: None. FINDINGS: Bones: 5 nonrib-bearing vertebrae are present. There is normal bony alignment. No vertebral body compression fractures. No suspicious bony lesions. Soft tissues: Overlying bowel gas pattern is normal. No suspicious soft tissue calcifications. Oblique images: No pars defects. IMPRESSION: Unremarkable lumbar spine plain films. No pars defects. Dictated by: Malik Ferrell M.D. on 01/15/2023 at 15:14 Approved by: Malik Ferrell M.D. on 01/15/2023 at 15:15
== END ==
PROVIDERS: PCP Family Medicine; Referring Provider Physical Medicine & Rehabilitation; Visit Provider Physical Medicine & Rehabilitation
DX: M51.26 Other intervertebral disc displacement, lumbar region (principal); M54.9 Dorsalgia, unspecified
CPT/HCPCS: 72110; 99214